=== PATIENT | male | born 1940 | race Two or more races ===

== ENCOUNTER → 2021-10-17 08:00 | Outpatient (CLI) | payer OTHER ==
[~2021-10-17] VITALS: Ht 175.3 cm; Wt 84.8 kg
[~2021-10-17 08:00] MED LIST: ALDACTONE25 MG PO; COZAAR25 MG PO; JARDIANCE10 MG PO; LEVO-T25 MCG PO; LOSARTAN POTASS25 MG; PERCOCET 5-3251 EACH PO; SIMVASTATIN40 MG PO; SIMVASTATIN5 MG PO
== END | disposition home or self-care (01) ==
LOC: LAB 08:00 → ADM 12:45 → CIR.AMB 10-19 07:00 → EDSTATUS 10-19 12:45
PROVIDERS: ATTEND Surgery
DX: K62.5 Hemorrhage of anus and rectum (principal); D64.9 Anemia, unspecified; K62.89 Other specified diseases of anus and rectum; Z86.010 Personal history of colon polyps; Z20.828 Contact with and (suspected) exposure to other viral communicable diseases

== ENCOUNTER 2021-10-18 14:08 | Inpatient (IN) | payer OTHER ==
[~2021-10-18] VITALS: Ht 175.3 cm; Wt 84.8 kg
[~2021-10-18 14:08] MED LIST changes: -LOSARTAN POTASS25 MG; -PERCOCET 5-3251 EACH PO; -SIMVASTATIN40 MG PO
[2021-10-18] MEDS ORDERED: LOSARTAN POTASS25 MG (14:53)
[2021-10-18] MEDS ORDERED: SIMVASTATIN40 MG PO (14:53)
[2021-10-18] MEDS ORDERED: ALDACTONE25 MG PO (14:54)
[2021-10-20] MEDS ORDERED: PERCOCET 5-3251 EACH PO (16:40)
== END 2021-10-20 23:25 | disposition home or self-care (01) | DRG 348 ==
LOC: ER 14:08 → SURH 17:05
PROVIDERS: ADMIT Surgery; ATTEND Surgery
PROC: 30233N1 Transfusion of Nonautologous Red Blood Cells into Peripheral Vein, Percutaneous Approach (ICD-10-PCS; 2021-10-19)
PROC: 06BY0ZC Excision of Hemorrhoidal Plexus, Open Approach (ICD-10-PCS; principal; 2021-10-19 10:30)
DX: K64.2 Third degree hemorrhoids (principal); K62.5 Hemorrhage of anus and rectum; K62.89 Other specified diseases of anus and rectum; D64.9 Anemia, unspecified; I10 Essential (primary) hypertension